=== PATIENT | male | born 1980 | race African-American/Black ===

== ENCOUNTER 2018-01-30 15:39 | Emergency (ER) | payer OTHER ==
[~2018-01-30] VITALS: Ht 180.3 cm; Wt 68.0 kg
[2018-01-30] MEDS ORDERED: VALIUM5 MG PO (16:11)
[2018-01-30] MEDS ORDERED: MOBIC15 MG PO (16:11)
== END 2018-01-30 16:29 | disposition home or self-care (01) ==
LOC: ER 15:39
DX: S16.1XXA Strain of muscle, fascia and tendon at neck level, initial encounter (principal); M54.5 Low back pain; F17.210 Nicotine dependence, cigarettes, uncomplicated; V49.09XA Driver injured in collision with other motor vehicles in nontraffic accident, initial encounter; Y93.89 Activity, other specified; Y92.89 Other specified places as the place of occurrence of the external cause; Y99.8 Other external cause status